=== PATIENT | male | born 1970 | race Caucasian/White ===

== ENCOUNTER 2019-08-10 13:51 | Emergency (ER) | payer OTHER ==
[~2019-08-10] VITALS: Ht 175.3 cm; Wt 98.9 kg
--- NOTE | 2019-08-10 13:51 | NUR ---
BIB [facility] 77 FROM WORK, ACTING CONFUSED AT WORK,BLOOD SUGAR 167, PATIENT STATES HE TOOK ALCOHOL LAST NIGHT AROUND 7PM, DR ROMERO AT BEDSIDE, WAS ABLE TO ANSWER ALL QUESTIONS. TO ER BED 10, HOOKED TO MONITOR, CHANGED TO HOSP GOWN. KEPT SAFE AND COMFORTABLE.
[2019-08-10] MEDS: IV NS 0.9% 1,000 ML BAG IV ONE (14:11)
--- NOTE | 2019-08-10 14:12 | NUR ---
URINE SAMPLE SENT TO LAB
[2019-08-10 14:19] LABS: BASOPHILS # (AUTO) 0.2 /CMM (0.0-0.2); BASOPHILS % (AUTO) 2.1 % (0.0-2.0); EOSINOPHILS % (AUTO) 1.3 % (0.0-6.0); HEMATOCRIT 46 % (39-51); HEMOGLOBIN 15.8 g/dL (13.5-17.5); LYMPHOCYTES # (AUTO) 2.6 /CMM (0.8-4.8); LYMPHOCYTES % (AUTO) 29.4 % (20.0-44.0); MEAN CORPUSCULAR HGB CONC 34 g/dl (31.0-36.0); MEAN CORPUSCULAR VOLUME 94 fL (80-96); MONOCYTES # (AUTO) 0.8 /CMM (0.1-1.30); MONOCYTES % (AUTO) 8.7 % (2.0-12.0); NEUTROPHILS # (AUTO) 5.1 /CMM (1.8-8.9); NEUTROPHILS % (AUTO) 58.5 % (43.0-81.0); PLATELET COUNT (AUTO) 195 /CMM (150-450); RED BLOOD CELL COUNT(AUTO) 4.92 MIL/uL (4.5-6.0); WHITE BLOOD COUNT (AUTO) 8.8 K/uL (4.3-11.0)
[2019-08-10 14:35] LABS: CARBON DIOXIDE 22 mmol/L (21-32); CHLORIDE 103 mmol/L (98-107); CREATININE 1.1 mg/dL (0.6-1.3); GLUCOSE 111 mg/dL (74-106); POTASSIUM 3.6 mmol/L (3.5-5.1); SODIUM SERUM 140 mmol/L (136-145); UREA NITROGEN, BLOOD 11 mg/dL (7-18)
[2019-08-10 14:42] LABS: ALANINE AMINOTRANSFERASE 67 U/L (12-78); ALBUMIN 3.8 g/dL (3.4-5.0); ALCOHOL, BLOOD 244 mg/dL (0-0); ALKALINE PHOSPHATASE 85 U/L (46-116); ASPARTATE AMINOTRANSFERASE 25 U/L (15-37); BILIRUBIN,DIRECT 0.2 mg/dL (0.0-0.2); BILIRUBIN,TOTAL 0.8 mg/dL (0.2-1.0); TOTAL PROTEIN, SERUM 7.6 g/dL (6.4-8.2)
[2019-08-10 14:43] LABS: ACETAMINOPHEN < 2 ug/ml (10-30); SALICYLATE < 2.8 mg/dL (2.8-20.0)
--- NOTE | 2019-08-10 15:16 | NUR ---
IV removed. Catheter intact and site benign. Pressure and 4x4 applied to site. No bleeding noted.Patient discharged to home in stable condition. Written and verbal after care instructions given. Patient verbalizes understanding of instruction. at waiting room.
[2019-08-10 15:17] VITALS: BP 118/62
== END 2019-08-10 15:18 | disposition home or self-care (01) ==
LOC: ER 13:55
DX: F10.129 Alcohol abuse with intoxication, unspecified (principal); R41.0 Disorientation, unspecified; R94.31 Abnormal electrocardiogram [ECG] [EKG]; Y90.8 Blood alcohol level of 240 mg/100 ml or more
CPT/HCPCS: 36415; 80048; 80076; 80305; 80307; 80329; 84484; 85025; 93005; 96360; 99284; G0480; J7030